=== PATIENT | female | born 1960 | race Caucasian/White ===

== ENCOUNTER → 2016-05-03 | Outpatient (CLI) | payer BC ==
--- NOTE | 2016-05-06 09:34 | MM ---
Reason for exam: screening (asymptomatic). Last mammogram was performed 1 year and 1 month ago. History: Patient is postmenopausal. Benign left mammotome panel of the left breast, May 22, 2007. Benign left mammotome panel of the left breast, September 12, 2006. Benign stereotactic core biopsy of the left breast, September 21, 1998. Took hormonal contraceptives for 20 years beginning at age 15. Took estrogen for 2 years 6 months beginning at age 38. Physical Findings: A clinical breast exam by your physician is recommended on an annual basis and results should be correlated with mammographic findings. MG Screening Mammo w CAD Bilateral CC and MLO view(s) were taken. Prior study comparison: March 31, 2015, bilateral MG screening mammo w CAD. December 21, 2013, right breast MG work up mamm w CAD RT. The breast tissue is heterogeneously dense. This may lower the sensitivity of mammography. Finding: There are typically benign calcifications in both breasts. Previous mammotome biopsy in the left breast. There is a chronic nodularity in the right breast. No significant changes in finding since March 31, 2015 and December 21, 2013. ASSESSMENT: Benign, BI-RAD 2 RECOMMENDATION: Routine screening mammogram of both breasts in 1 year.
== END | disposition home or self-care (01) ==
LOC: RADMAMWWP 08:00
PROVIDERS: ATTEND Internal Medicine
DX: Z12.31 Encounter for screening mammogram for malignant neoplasm of breast (principal)

== ENCOUNTER → 2017-09-30 | Outpatient (CLI) | payer OTHER ==
--- NOTE | 2017-09-30 14:51 | BD ---
EXAMINATION TYPE: Axial Bone Density DATE OF EXAM: 09/30/2017 COMPARISON: 12/15/2013 CLINICAL HISTORY: Postmenopausal female. Osteoporosis screening. Height: 62.5 IN Weight: 189 LBS FRAX RISK QUESTIONS: Secondary Osteoporosis: 3. Menopause before 45: YES HYSTERECTOMY AGE 38 Current Tobacco Use: YES RISK FACTORS HISTORY OF: Active: YES Postmenopausal woman: AGE 38 Take estrogen and/or progesterone medications: NOT NOW How long: TOOK CONTROL FOR 20 YEARS. TOOK ESTROGEN AGE 38 - 40 MEDICATIONS: Thyroid Medications: YES Which medication: LEVOTHYROXINE How Lon MONTHS Additional Medications: VIT D, EFFEXOR, LEVOTHYROXINE, CHOLESTEROL MEDS, MULTI VIT, ASPIRIN EXAM MEASUREMENTS: Bone mineral densitometry was performed using the [employer] System. Bone mineral density as measured about the Lumbar spine is: ----- L1-L4(G/cm2): 1.201 T Score Values are as follows: ----- L2: -0.6 ----- L3: 0.8 ----- L4: 0.5 ----- L1-L4: 0.2 Bone mineral density has: Increased 4.0% since study of: 12/15/2013 Bone mineral density about the R hip (g/cm2): 0.937 Bone mineral density about the L hip (g/cm2): 0.903 T Score values are as follows: -----R Neck: -0.7 -----L Neck: -1.0 -----R Total: 0.1 -----L Total: -0.2 Bone mineral density has: Decreased -0.1% since study of: 12/15/2013 IMPRESSION: Osteopenia (T Score between -2.5 and -1). There is slightly increased risk of fracture and the patient may be considered for treatment. Re-Screen 2-5 years. NOTE: T-SCORE=SD OF THE YOUNG ADULT MEAN.
--- NOTE | 2017-10-02 10:46 | MM ---
Reason for exam: screening (asymptomatic). Last mammogram was performed 1 year and 5 months ago. History: Patient is postmenopausal. Benign left mammotome panel of the left breast, May 22, 2007. Benign left mammotome panel of the left breast, September 12, 2006. Benign stereotactic core biopsy of the left breast, September 21, 1998. Took hormonal contraceptives for 20 years beginning at age 15. Took estrogen for 2 years 6 months beginning at age 38. Physical Findings: A clinical breast exam by your physician is recommended on an annual basis and results should be correlated with mammographic findings. MG Screening Mammo w CAD Bilateral CC and MLO view(s) were taken. Prior study comparison: May 03, 2016, bilateral MG screening mammo w CAD. March 31, 2015, bilateral MG screening mammo w CAD. There are scattered fibroglandular densities. Finding: There are stable segmental fine calcifications in the upper outer quadrant of the left breast. Previous mammotome biopsy in the left breast. No significant changes in finding since May 03, 2016 and March 31, 2015. ASSESSMENT: Benign, BI-RAD 2 RECOMMENDATION: Routine screening mammogram of both breasts in 1 year.
== END | disposition home or self-care (01) ==
LOC: RADMAMWWP 07:19
PROVIDERS: ATTEND Internal Medicine
DX: Z12.31 Encounter for screening mammogram for malignant neoplasm of breast (principal); Z13.820 Encounter for screening for osteoporosis; M85.852 Other specified disorders of bone density and structure, left thigh; M85.851 Other specified disorders of bone density and structure, right thigh
CPT/HCPCS: 77067; 77080

== ENCOUNTER → 2018-10-21 | Outpatient (CLI) | payer OTHER ==
--- NOTE | 2018-10-22 14:13 | MM ---
Reason for exam: screening (asymptomatic). Last mammogram was performed 1 year and 1 month ago. History: Patient is postmenopausal. Benign left mammotome panel of the left breast, May 22, 2007. Benign left mammotome panel of the left breast, September 12, 2006. Benign stereotactic core biopsy of the left breast, September 21, 1998. Took hormonal contraceptives for 20 years beginning at age 15. Took estrogen for 2 years 6 months beginning at age 38. Physical Findings: A clinical breast exam by your physician is recommended on an annual basis and results should be correlated with mammographic findings. MG Screening Mammo w CAD Bilateral CC and MLO view(s) were taken. Prior study comparison: September 30, 2017, bilateral MG screening mammo w CAD. May 03, 2016, bilateral MG screening mammo w CAD. The breast tissue is heterogeneously dense. This may lower the sensitivity of mammography. Benign appearing bilateral calcifications. Multiple left biopsy markers noted. No significant changes when compared with prior studies. ASSESSMENT: Benign, BI-RAD 2 RECOMMENDATION: Routine screening mammogram of both breasts in 1 year.
== END | disposition home or self-care (01) ==
LOC: RADMAMWWP 07:21
PROVIDERS: ATTEND Internal Medicine
DX: Z12.31 Encounter for screening mammogram for malignant neoplasm of breast (principal)
CPT/HCPCS: 77067

== ENCOUNTER 2018-11-06 08:32 | Day surgery (SDC) | payer OTHER ==
[2018-11-05 08:23] VITALS: BMI 34.7
[~2018-11-06 08:32] MED LIST: LACTATED RINGERS 1,000 ML IV SCH; LIDOCAINE 1% 20 ML VIAL (10MG/ML) FOR IV START INTRADERMA PRN
[2018-11-06 09:14] VITALS: RESP 18; TEMP 98.4
[2018-11-06] MEDS ORDERED: PROPOFOL 10 MG/ML 20 ML VIAL IV ONE (09:26)
[2018-11-06] MEDS ORDERED: LIDOCAINE 1% INJ 10MG/ML (20 ML MDV) ONE (09:26)
--- NOTE | 2018-11-06 09:28 | P.GSHP ---
History of Present Illness H&P Date: 11/06/18 Chief Complaint: Screening, history of polyps 58-year-old female presents today for colonoscopy. Last colonoscopy 5 years ago. 2 polyps found at that time. Biopsy results inconclusive. No bowel related complaints. Past Medical History Past Medical History: Hyperlipidemia, Thyroid Disorder Additional Past Medical History / Comment(s): spontaneous pneumothorax 2017 History of Any Multi-Drug Resistant Organisms: None Reported Past Surgical History: Hysterectomy Past Anesthesia/Blood Transfusion Reactions: Previous Problems w/ Anesthesia, Motion Sickness, Postoperative Nausea & Vomiting (PONV) Smoking Status: Current every day smoker - Past Family History Father Additional Family Medical History / Comment(s): father father at age 76 from heart failure and also was known to have a lung nodule that was not worked up. Mother Family Medical History: Myocardial Infarction ([place]) Additional Family Medical History / Comment(s): at 2018 Brother(s) Additional Family Medical History / Comment(s): Patient has 3 brothers and 2 sisters with no major medical problems. Patient has 2 daughters and 1 son with no major medical problems. Medications and Allergies Home Medications Medication Instructions Recorded Confirmed Type Aspirin 81 mg PO DAILY 01/26/14 11/06/18 History Atorvastatin [Lipitor] 80 mg PO DAILY 01/26/14 11/06/18 History Cholecalciferol [Vitamin D3] 5,000 unit PO MOWE 01/26/14 11/06/18 History Multivitamins, Thera [Multivitamin] 1 tab PO DAILY 01/26/14 11/06/18 History ALPRAZolam [Xanax] 0.25 mg PO DAILY PRN 12/29/16 11/06/18 History Fexofenadine HCl [Cecilia Allergy] 180 mg PO DAILY PRN 12/29/16 11/06/18 History Calcium Carbonate [Calcium] 600 mg PO DAILY 11/05/18 11/06/18 History Levothyroxine Sodium [Synthroid] 50 mcg PO DAILY 11/05/18 11/06/18 History Venlafaxine HCl [Effexor] 37.5 mg PO DAILY 11/05/18 11/06/18 History Allergies Allergy/AdvReac Type Severity Reaction Status Date / Time No Known Allergies Allergy Verified 11/06/18 08:52 Surgical - Exam Vital Signs Temp Pulse Resp BP Pulse Ox 98.4 F 71 18 108/71 96 11/06/18 09:00 11/06/18 09:00 11/06/18 09:00 11/06/18 09:00 11/06/18 09:00 Physical exam: General: Well-developed, well-nourished HEENT: Normocephalic, sclerae nonicteric Abdomen: Nontender, nondistended Extremities: No edema Neuro: Alert and oriented Assessment and Plan (1) Colon cancer screening Narrative/Plan: Will proceed with colonoscopy at this time Current Visit: Yes Status: Acute Code(s): Z12.11 - ENCOUNTER FOR SCREENING FOR MALIGNANT NEOPLASM OF COLON SNOMED Code(s): 650382504
--- NOTE | 2018-11-06 09:59 | P.PCN ---
Date of Procedure: 11/06/18 Procedure(s) Performed: PREOPERATIVE DIAGNOSIS: History of colon polyps, screening POSTOPERATIVE DIAGNOSIS: Rectal polyp PROCEDURE: Colonoscopy with snare polypectomy ANESTHESIA: MAC SURGEON: Isidro Alex M.D. SPECIMENS: Rectal polyp ENDOSCOPIC PROCEDURE: The patient was placed on the endoscopy table in the left decubitus position. The Olympus colonoscope was inserted into the anus and passed under direct visualization to the base of the cecum. The appendiceal orifice was visualized. From that point the scope was slowly withdrawn inspecting all surfaces carefully. There were no neoplastic inflammatory or polypoid lesions throughout the cecum, ascending, transverse, descending, and sigmoid colon. In the rectum there is noted be a small polyp that was removed using the snare with cautery technique. The remainder of the rectum was normal. There was no visible diverticulosis at this time. Digital rectal examination was normal. The patient was taken to the recovery room in stable condition per anesthesia guidelines. RECOMMENDATIONS: Await biopsy results. Anticipate follow-up colonoscopy 5 years.
[2018-11-06 10:05] VITALS: BP 127/80; PULSE 67
== END 2018-11-06 10:24 | disposition home or self-care (01) ==
LOC: ORWHC2ENDO 08:32
PROVIDERS: ATTEND Surgery
DX: Z12.11 Encounter for screening for malignant neoplasm of colon (principal); Z86.010 Personal history of colon polyps; E78.5 Hyperlipidemia, unspecified; E07.9 Disorder of thyroid, unspecified; Z90.710 Acquired absence of both cervix and uterus; F17.200 Nicotine dependence, unspecified, uncomplicated; F41.9 Anxiety disorder, unspecified; F41.0 Panic disorder [episodic paroxysmal anxiety]; Z97.2 Presence of dental prosthetic device (complete) (partial); Z87.09 Personal history of other diseases of the respiratory system; Z82.49 Family history of ischemic heart disease and other diseases of the circulatory system; Z79.82 Long term (current) use of aspirin; Z79.890 Hormone replacement therapy; Z79.899 Other long term (current) drug therapy
CPT/HCPCS: 88305; 45385; J2001; J2704

== ENCOUNTER → 2019-11-19 | Outpatient (CLI) | payer OTHER ==
--- NOTE | 2019-11-22 09:55 | MM ---
Reason for exam: screening (asymptomatic). Last mammogram was performed 1 year and 1 month ago. History: Patient is postmenopausal. Benign left mammotome panel of the left breast, May 22, 2007. Benign left mammotome panel of the left breast, September 12, 2006. Benign stereotactic core biopsy of the left breast, September 21, 1998. Took hormonal contraceptives for 20 years beginning at age 15. Took estrogen for 2 years 6 months beginning at age 38. Physical Findings: A clinical breast exam by your physician is recommended on an annual basis and results should be correlated with mammographic findings. MG Screening Mammo w CAD Bilateral CC and MLO view(s) were taken. Prior study comparison: October 21, 2018, bilateral MG screening mammo w CAD. September 30, 2017, bilateral MG screening mammo w CAD. The breast tissue is heterogeneously dense. This may lower the sensitivity of mammography. Stable benign calcifications. Previous mammotome biopsy in the left breast. There is no discrete abnormality. No significant changes when compared with prior studies. ASSESSMENT: Benign, BI-RAD 2 RECOMMENDATION: Routine screening mammogram of both breasts in 1 year.
== END | disposition home or self-care (01) ==
LOC: RADMAMWWP 15:54
PROVIDERS: ATTEND Internal Medicine
DX: Z12.31 Encounter for screening mammogram for malignant neoplasm of breast (principal)
CPT/HCPCS: 77067

== ENCOUNTER → 2021-02-13 | Outpatient (CLI) | payer BC ==
--- NOTE | 2021-02-13 11:38 | US ---
EXAMINATION TYPE: US thyroid st tissue head/neck DATE OF EXAM: 02/13/2021 COMPARISON: NONE CLINICAL HISTORY: E03.9 Hypothyroidism. GLAND SIZE: Right Lobe: 5.0x1.8x1.8 cm Overall Parenchyma: heterogenous Left Lobe: 4.7x1.6x1.8 cm Overall Parenchyma: heterogeneous Isthmus Thickness: 0.2 cm NODULES RIGHT: # of nodules measured on right: 2 1. 1.1 X 0.9 x 0.7 cm, lower medial, solid or almost completely solid, hyperechoic nodule, which is wider than tall, with smooth margins, without echogenic foci. TR 3 2. 0.9 X 0.9 x 0.9 cm, lower mid, solid or almost completely solid, hypoechoic nodule, which is wid er than tall, with smooth margins, without echogenic foci. TR4 LEFT: # of nodules measured on left: 1 1. 0.8 X 0.8 x 0.6 cm, upper medial, solid or almost completely solid, hyperechoic nodule, which is wider than tall, with smooth margins, without echogenic foci. TR 4 ISTHMUS: # of nodules measured in the isthmus: 0 Bilateral neck scanned, no evidence of lymphadenopathy. Markedly heterogeneous normal-sized thyroid without suspicious greater than 1.5 cm hypoechoic solid n odule. IMPRESSION: As above. 2017 ACR TI-RADS LEVEL: TR-RADS 4 - Moderately Suspicious: Follow if > 1 cm, FNA if > 1.5 cm *Highest TI-RADS level nodule reported
== END | disposition home or self-care (01) ==
LOC: RADUSWWP 10:41
PROVIDERS: ATTEND Internal Medicine
DX: E04.2 Nontoxic multinodular goiter (principal); E03.9 Hypothyroidism, unspecified
CPT/HCPCS: 76536

== ENCOUNTER → 2021-02-15 | Outpatient (CLI) | payer BC ==
--- NOTE | 2021-02-19 10:32 | MM ---
Reason for exam: screening (asymptomatic). Last mammogram was performed 1 year and 3 months ago. History: Patient is postmenopausal. Benign left mammotome panel of the left breast, May 22, 2007. Benign left mammotome panel of the left breast, September 12, 2006. Benign stereotactic core biopsy of the left breast, September 21, 1998. Took hormonal contraceptives for 20 years beginning at age 15. Took estrogen for 2 years 6 months beginning at age 38. Physical Findings: A clinical breast exam by your physician is recommended on an annual basis and results should be correlated with mammographic findings. MG Screening Mammo w CAD Bilateral CC and MLO view(s) were taken. Prior study comparison: November 19, 2019, bilateral MG screening mammo w CAD. October 21, 2018, bilateral MG screening mammo w CAD. The breast tissue is heterogeneously dense. This may lower the sensitivity of mammography. No significant changes when compared with prior studies. ASSESSMENT: Benign, BI-RAD 2 RECOMMENDATION: Routine screening mammogram of both breasts in 1 year.
== END | disposition home or self-care (01) ==
LOC: RADMAMWWP 16:13
PROVIDERS: ATTEND Internal Medicine
DX: Z12.31 Encounter for screening mammogram for malignant neoplasm of breast (principal); Z78.0 Asymptomatic menopausal state
CPT/HCPCS: 77067

== ENCOUNTER → 2022-02-18 | Outpatient (CLI) | payer BC ==
--- NOTE | 2022-02-18 08:28 | MM ---
Reason for Exam: Screening (asymptomatic). Last screening mammogram was performed 12 month(s) ago. Patient History: Menarche at age 10. First Full-Term at age 15. Left ovary removed at age 38. Right ovary removed at age 38. Hysterectomy at age 38. Postmenopausal. Estrogen for 2 years, 6 months, from age 38 until age 41. Hormonal Contraceptives for 20 years from age 15 until age 38. 05/22/2007, Benign Core Biopsy on the left side. 09/12/2006, Benign Core Biopsy on the left side. 09/21/1998, Benign Stereotactic Core Biopsy on the left side. Risk Values: Denise 5 year model risk: 1.7%. NCI Lifetime model risk: 7.0%. Prior Study Comparison: 10/21/2018 Bilateral Screening Mammogram, [facility]. 11/19/2019 Bilateral Screening Mammogram, [facility]. 02/15/2021 Bilateral Screening Mammogram, [facility]. Tissue Density: The breast tissue is heterogeneously dense. This may lower the sensitivity of mammography. Findings: Analyzed By CAD. There is no suspicious group of microcalcifications or new suspicious mass in either breast. Overall Assessment: Benign, BI-RAD 2 Management: Screening Mammogram of both breasts in 1 year. A clinical breast exam by your physician is recommended on an annual basis and results should be correlated with mammographic findings. Electronically signed and approved by: Jules Molina M.D. Radiologis
--- NOTE | 2022-02-18 08:36 | CTL ---
EXAMINATION TYPE: CT Low Dose Lung DATE OF EXAM ORDERED: 02/18/2022 COMPARISON: None HISTORY: . Low Dose CT Lung Screening CT DLP: 98.[address] CTDI: 3.0 mGy IV CONTRAST USED: None. SCREENING VISIT: First visit COMPARISON: None. TECHNIQUE: Low dose computed tomography scan was performed through the chest at 1 millimeter thick se ctions and reconstructed images in the coronal plane at [address] DIAGNOSTIC QUALITY: Satisfactory FINDINGS: LUNG NODULES: 1 mm pulmonary nodule right upper lobe anteriorly image 64 series 4. 5 mm groundglass n odule right upper lobe anteriorly image 135 series 4. LUNGS: COPD: Severity: None Fibrosis: Severity:None Lymph nodes: None Other findings: None RIGHT PLEURAL SPACE: Effusion: None Calcification: None Thickening: None Pneumothorax: None LEFT PLEURAL SPACE: Effusion: None Calcification: None Thickening: None Pneumothorax: None HEART: Heart Size: Mildly enlarged Coronary calcification: Mild Pericardial effusion: None OTHER FINDINGS: Upper abdomen: Left adrenal adenoma. Bony thorax: Degenerative changes Supraclavicular region: No significant abnormalityOther: No significant abnormalityI IMPRESSION: 1. Left adrenal adenoma. 2. Benign-appearing nodules. FOLLOW UP CT CHEST RECOMMENDATION: Follow-up screening in one year CT LUNG RAD: LUNG RAD CATEGORY 2 benign appearance or behavior.
--- NOTE | 2022-02-18 09:42 | BD ---
EXAMINATION TYPE: Axial Bone Density DATE OF EXAM: 02/18/2022 COMPARISON: 09.30.2017 CLINICAL HISTORY: 62 years year old Female. ICD-10 CODE: [id number] OSTEO OF RIGHT HIP Height: 62 Weight: 199 FRAX RISK QUESTIONS: History of Fracture in Adulthood: YES Secondary Osteoporosis: YES 3. Menopause before 45: YES, AT 38 Current Tobacco Use: YES, JUST QUIT RISK FACTORS HISTORY OF: HX OF BROKEN TOES AN ADULT Postmenopausal woman: YES, AT 38...TOTAL HYST Take estrogen and/or progesterone medications: JUST A YR IN THE PAST Hyperparathyroidism: NO Adrenal Insufficiency: NO MEDICATIONS: Thyroid Medications: YES, SYNTHROID PRODUCT FOR ABOUT 3 YRS Additional Medications: EFFEXOR, XANAX, VIT D, CALCIUM AND STATIN FOR CHOLESTEROL, Additional History: ANXIETY, CHOLESTEROL, EXAM MEASUREMENTS: Bone mineral densitometry was performed using the [employer] System. Bone mineral density as measured about the Lumbar spine is: ----- L1-L4(G/cm2): 1.337 T Score Values are as follows: ----- L1: 0.1 ----- L2: 0.9 ----- L3: 1.9 ----- L4: 1.8 ----- L1-L4: 1.3 Bone mineral density has: Decreased -3.5% since study of: 09.30.2017 Bone mineral density about the R hip (g/cm2): 1.00 Bone mineral density about the L hip (g/cm2): 1.00 T Score values are as follows: -----R Neck: -0.8 -----L Neck: -1.0 -----R Total: -0.1 -----L Total: -0.1 Bone mineral density has: Decreased -0.1% since study of: 09.30.2017 FRAX%s: The graph provided illustrates a 12.0% chance for a major osteoporotic fx and a 1.4% chance f or the hips probability for fx in 10 years time. IMPRESSION: Normal (Values between +1 and -1 indicate normal bone mass). Consider repeating this study in 5 year s or sooner if there is some new clinical indication. NOTE: T-SCORE=SD OF THE YOUNG ADULT MEAN.
--- NOTE | 2022-02-18 09:57 | US ---
EXAMINATION TYPE: US thyroid st tissue head/neck DATE OF EXAM: 02/18/2022 COMPARISON: NONE CLINICAL HISTORY: E041 THYROID NODULE. Thyroid nodules GLAND SIZE: Right Lobe: 4.7 x 1.4 x 2.0 cm Overall Parenchyma: heterogenous Left Lobe: 4.4 x 1.6 x 1.7 cm Overall Parenchyma: heterogeneous Isthmus Thickness: .2 cm NODULES RIGHT: # of nodules measured on right: 2 1. 1.0 X 0.9 x 1.0 cm, Prior size: 1.1 x 0.9 x 0.7 cm TIRADS Score: 4 TIRADS Category 4: Moderately Suspicious Composition: Solid or almost completely solid (2 points). Echogenicity: Hypoechoic (2 points). Shape: Wider than tall (0 points). Margin: Smooth (0 points). Echogenic foci: None or large comet-tail artifacts (0 points) Recommendation: If >1.5cm: FNA; If >1cm: Follow up at 1,3,5 years 2. 1.0 X 0.7 x 1.1 cm, mid Prior size: 0.9 x 0.9 x 0.9 cm TIRADS Score: 3 TIRADS Category 3: Mildly Suspicious Composition: Solid or almost completely solid (2 points). Echogenicity: Hyperechoic or isoechoic (1 point). Shape: Wider than tall (0 points). Margin: Smooth (0 points). Echogenic foci: None or large comet-tail artifacts (0 points) Recommendation: If >2.5cm: FNA; If >1.5cm: Follow up at 1,3,5 years LEFT: # of nodules measured on left: Heterogenous no definite nodules seen. ISTHMUS: # of nodules measured in the isthmus: 0 Bilateral neck scanned, no evidence of lymphadenopathy. IMPRESSION: Left thyroid nodule that meet criteria for follow-up. 2017 ACR TI-RADS LEVEL: TR-RADS 4 - Moderately Suspicious: Follow if > 1 cm, FNA if > 1.5 cm *Highest TI-RADS level nodule reported
== END | disposition home or self-care (01) ==
LOC: RADMAMWWP 06:43
PROVIDERS: ATTEND Internal Medicine
DX: Z12.31 Encounter for screening mammogram for malignant neoplasm of breast (principal); Z12.2 Encounter for screening for malignant neoplasm of respiratory organs; D35.02 Benign neoplasm of left adrenal gland; M85.851 Other specified disorders of bone density and structure, right thigh; E04.1 Nontoxic single thyroid nodule; R91.8 Other nonspecific abnormal finding of lung field; Z78.0 Asymptomatic menopausal state; Z87.891 Personal history of nicotine dependence; Z98.890 Other specified postprocedural states
CPT/HCPCS: 71271; 76536; 77067; 77080

== ENCOUNTER 2022-04-05 11:17 | Day surgery (SDC) | payer BC ==
--- NOTE | 2022-04-05 07:36 | P.GSHP ---
History of Present Illness H&P Date: 04/05/22 Chief Complaint: Right back lipoma 62-year-old female seen in the office in January. Patient with enlarging mass right mid back for the last 25 years. Some pain at times. Here today for surgical excision. Past Medical History Past Medical History: Hyperlipidemia, Thyroid Disorder Additional Past Medical History / Comment(s): nausea History of Any Multi-Drug Resistant Organisms: None Reported Past Surgical History: Hysterectomy Additional Past Surgical History / Comment(s): upper and lower scopes Past Anesthesia/Blood Transfusion Reactions: Previous Problems w/ Anesthesia, Motion Sickness, Postoperative Nausea & Vomiting (PONV) Smoking Status: Current some day smoker - Past Family History Father Additional Family Medical History / Comment(s): father father at age 76 from heart failure and also was known to have a lung nodule that was not worked up. Mother Family Medical History: Myocardial Infarction ([place]) Additional Family Medical History / Comment(s): at 2018 Brother(s) Additional Family Medical History / Comment(s): Patient has 3 brothers and 2 sisters with no major medical problems. Patient has 2 daughters and 1 son with no major medical problems. Medications and Allergies Home Medications Medication Instructions Recorded Confirmed Type Aspirin 81 mg PO DAILY 01/26/14 04/01/22 History Atorvastatin [Lipitor] 80 mg PO HS 01/26/14 04/01/22 History Cholecalciferol [Vitamin D3] 5,000 unit PO MOWE 01/26/14 04/01/22 History Multivitamins, Thera [Multivitamin] 1 tab PO DAILY 01/26/14 04/01/22 History ALPRAZolam [Xanax] 0.25 mg PO DAILY PRN 12/29/16 04/01/22 History Fexofenadine HCl [Cecilia Allergy] 180 mg PO DAILY PRN 12/29/16 04/01/22 History Calcium Carbonate [Calcium] 600 mg PO DAILY 11/05/18 04/01/22 History Levothyroxine Sodium [Synthroid] 50 mcg PO DAILY 11/05/18 04/01/22 History Venlafaxine HCl [Effexor] 37.5 mg PO DAILY 11/05/18 04/01/22 History Zinc Gluconate [Zinc] 50 mg PO DAILY 04/01/22 04/01/22 History Allergies Allergy/AdvReac Type Severity Reaction Status Date / Time codeine AdvReac Unknown Verified 04/01/22 10:36 Surgical - Exam Physical exam: General: Well-developed, well-nourished HEENT: Normocephalic, sclerae nonicteric Abdomen: Nontender, nondistended Extremities: No edema, right mid back with 12 cm lipomatous mass Neuro: Alert and oriented Assessment and Plan (1) Lipoma of back Narrative/Plan: 62-year-old female with large lipoma right mid back. We'll proceed with surgical excision at this time. Risks of bleeding, infection, recurrence, scarring, numbness, seroma, possible need for drain placement reviewed. She understands and wishes to proceed. Status: Acute Code(s): D17.1 - BENIGN LIPOMATOUS NEOPLASM OF SKIN, SUBCU OF TRUNK SNOMED Code(s): 657635178
[~2022-04-05 11:17] MED LIST changes: +ACETAMINOPHEN TAB 500 MG TAB PO PRN; +DEXAMETHASONE SOD PHOSPHATE 4 MG/ML 1 ML VIAL IV ONE; +HEPARIN SODIUM,PORCINE/PF 5,000 UNIT/0.5 ML SYRINGE SQ PRN; -LIDOCAINE 1% 20 ML VIAL (10MG/ML) FOR IV START INTRADERMA PRN; +MIDAZOLAM 2 MG/2 ML VIAL IV PRN; +ONDANSETRON 4 MG/2 ML VIAL IVP ONE; +Pre Op ABX Message 1 EACH MISC MISCELLANE ONE; +SCOPOLAMINE 1 MG/72 HR PATCH TRANSDERM ONE; +fentaNYL (PF) 50 MCG/ML 2 ML AMP IV PRN
[2022-04-05] MEDS ORDERED: HYDROmorphone 0.5 MG/0.5 ML SYRINGE IVP PRN (11:28)
[2022-04-05] MEDS ORDERED: LIDOCAINE 1% (10MG/ML) FOR IV START INTRADERMA PRN (11:28)
[2022-04-05] MEDS ORDERED: LACTATED RINGERS 1,000 ML IV SCH (11:28)
[2022-04-05] MEDS ORDERED: ONDANSETRON 4 MG/2 ML VIAL ONE (11:38)
[2022-04-05 11:47] VITALS: RESP 16
[2022-04-05] MEDS ORDERED: PHENYLEPHRINE-0.9% NACL SYG 1,000 MCG/10 ML SYRINGE ONE (13:31)
[2022-04-05] MEDS ORDERED: LIDOCAINE 2% INJ 20 MG/ML (2 ML VIAL) ONE (13:31)
[2022-04-05] MEDS ORDERED: fentaNYL (PF) 50 MCG/ML 2 ML AMP ONE (13:31)
[2022-04-05] MEDS ORDERED: PROPOFOL 10 MG/ML 20 ML VIAL IV ONE (13:31)
[2022-04-05] MEDS ORDERED: MIDAZOLAM 2 MG/2 ML VIAL ONE (13:31)
[2022-04-05] MEDS ORDERED: SODIUM CHLORIDE 0.9% 50 ML with ceFAZolin 2,000 MG IV ONE ×2 (14:07)
[2022-04-05] MEDS ORDERED: LACTATED RINGERS 1,000 ML IV ONE (14:09)
[2022-04-05] MEDS ORDERED: BUPIVACAINE (PF) 0.5% 30 ML VIAL SQ ONE ×2 (14:11→14:23)
[2022-04-05] MEDS ORDERED: traMADol 50 MG TAB PO PRN (14:40)
[2022-04-05] MEDS ORDERED: NALOXONE 0.4 MG/ML 1 ML VIAL IV PRN (14:40)
[2022-04-05] MEDS ORDERED: ACETAMINOPHEN TAB 325 MG TAB PO PRN (14:40)
[2022-04-05 14:53] VITALS: TEMP 97
[2022-04-05 16:09] VITALS: BP 125/82; PULSE 86
--- NOTE | 2022-04-05 17:19 | P.OP ---
Date of Procedure: 04/05/22 Procedure(s) Performed: PREOPERATIVE DIAGNOSIS: Right back lipoma POSTOPERATIVE DIAGNOSIS: Right back subfascial lipoma PROCEDURE: Excision right back subfascial lipoma with intermediate closure SURGEON: Isai EBL: 50 Radha ANESTHESIA: Gen. COMPLICATIONS: None OPERATIVE PROCEDURE: Patient place in the left decubitus position after general anesthesia achieved. The right mid back was prepped and draped sterilely. There was a portion of the skin at the central aspect of this mass that appeared to be adherent to the lipoma. An elliptical incision was made encompassing this portion of skin. The subcutaneous tissues were then dissected using both blunt dissection and cautery fully excising the large lipomatous mass. This did extend below the fascia centrally. There are multiple pseudopod-like areas of the lipoma that were extending into the surrounding tissues. The specimen was removed as one piece. This measured 9 x 6 cm. A small area of bleeding was controlled using a 3-0 Vicryl tie. The subcutaneous tissues were then closed using interrupted 3-0 Vicryl sutures. The skin was closed using a running 4-0 Monocryl subcuticular stitch. Skin glue was applied. DISPOSITION: Stable to recovery room
== END 2022-04-05 16:28 | disposition home or self-care (01) ==
LOC: OR 11:17
PROVIDERS: ATTEND Surgery
DX: D17.1 Benign lipomatous neoplasm of skin and subcutaneous tissue of trunk (principal); I10 Essential (primary) hypertension; E03.9 Hypothyroidism, unspecified; Z79.890 Hormone replacement therapy; E78.5 Hyperlipidemia, unspecified; K21.9 Gastro-esophageal reflux disease without esophagitis; F41.9 Anxiety disorder, unspecified; F32.A Depression, unspecified; Z98.51 Tubal ligation status; Z98.890 Other specified postprocedural states; Z80.1 Family history of malignant neoplasm of trachea, bronchus and lung; Z82.49 Family history of ischemic heart disease and other diseases of the circulatory system; Z79.02 Long term (current) use of antithrombotics/antiplatelets; Z79.899 Other long term (current) drug therapy; Z87.891 Personal history of nicotine dependence; Z79.82 Long term (current) use of aspirin; Z88.5 Allergy status to narcotic agent; Z88.8 Allergy status to other drugs, medicaments and biological substances
CPT/HCPCS: 21933; 88304; J2250; J1100; J2405; J0690; J3010; J2370; J2704; J1644; J2001

== ENCOUNTER → 2023-04-18 | Outpatient (CLI) | payer BC ==
--- NOTE | 2023-04-21 08:57 | MM ---
Reason for Exam: Screening (asymptomatic). Last mammogram was performed 1 year(s) and 2 month(s) ago. Patient History: Menarche at age 10. First Full-Term at age 15. Left ovary removed at age 38. Right ovary removed at age 38. Hysterectomy at age 38. Postmenopausal. Estrogen for 2 years, 6 months, from age 38 until age 41. Hormonal Contraceptives for 20 years from age 15 until age 38. 05/22/2007, Benign Core Biopsy on the left side. 09/12/2006, Benign Core Biopsy on the left side. 09/21/1998, Benign Stereotactic Core Biopsy on the left side. Risk Values: Denise 5 year model risk: 1.8%. NCI Lifetime model risk: 6.8%. Prior Study Comparison: 11/19/2019 Bilateral Screening Mammogram, [facility]. 02/15/2021 Bilateral Screening Mammogram, [facility]. 02/18/2022 Bilateral MG screening mammo w CAD, [facility]. Tissue Density: There are scattered fibroglandular densities. Findings: Analyzed By CAD. There is no suspicious group of microcalcifications or new suspicious mass. Overall Assessment: Negative, BI-RAD 1 Management: Screening Mammogram of both breasts in [address] [facility] will attempt to contact patient to return for supplemental views and ultrasound if indicated. Patient should continue monthly self-breast exams. A clinical breast exam by your physician is recommended on an annual basis. This exam should not preclude additional follow-up of suspicious palpable abnormalities. Note on Denise scores and lifetime risk: 1. A Denise score greater than 3% is considered moderate risk. If this is the case, consider specialist referral to assess eligibility for a risk reducing agent. 2. If overall lifetime risk for the development of breast cancer is 20% or higher, the patient may qualify for future screening with alternating mammogram and breast MRI. Electronically signed and approved by: Dustin Vega DO
== END | disposition home or self-care (01) ==
LOC: RADMAMWWP 07:57
PROVIDERS: ATTEND Internal Medicine
DX: Z12.31 Encounter for screening mammogram for malignant neoplasm of breast (principal); Z12.2 Encounter for screening for malignant neoplasm of respiratory organs; Z78.0 Asymptomatic menopausal state
CPT/HCPCS: 77063; 77067

== ENCOUNTER → 2023-10-15 | Outpatient (CLI) | payer BC ==
--- NOTE | 2023-11-06 16:04 | CTL ---
Site ID [facility] Patient Katharina Gregg M ID [id number] 1960 Age/Gender: 63Y, F Order # N/A Procedure CT LOW DOSE LUNG CANCER SCREENING Date 10/15/2023 10:14:00 AM EXAMINATION TYPE: CT Low Dose Lung DATE OF EXAM ORDERED: 10/30/2023 HISTORY: Personal history of nicotine dependence, 20 pack year history, quit smoking 7 years ago. Bogdan g cancer screening CT DLP: 120.[address] CTDI: 3.20 mGy Automated exposure control for dose reduction was used. SCREENING VISIT: Follow-up COMPARISON: CT Low Dose Lung cancer screening 02/18/2022 TECHNIQUE: Low dose computed tomography scan was performed through the chest at 1 mm thick sections a nd reconstructed images in multiple planes at 1 mm and [address] DIAGNOSTIC QUALITY: Satisfactory FINDINGS: Nodules: Posterior left upper lobe punctate calcific granuloma. Stable peripheral right upper lobe 3.5 mm pulmonary nodule (series 4, image 70). Stable left lower lobe peripheral 4.5 mm pulmonary nodule (series 4, image 183). Stable 4.8 mm intrafissural lymph node along the right minor fissure. LUNGS: COPD: Severity: None Fibrosis: Severity: None Lymph nodes: None Other findings: None RIGHT PLEURAL SPACE: Effusion: None Calcification: None Thickening: None Pneumothorax: None LEFT PLEURAL SPACE: Effusion: None Calcification: None Thickening: None Pneumothorax: None HEART: Heart Size: Normal Coronary Calcification: Mild, predominantly within the LAD. Pericardial Effusion: None OTHER FINDINGS: Upper abdomen: Stable left adrenal 1.8 cm lipid rich adenoma. Bony thorax: None Supraclavicular region: None Other: Mild atherosclerotic calcification of the aorta and its branches. IMPRESSION: Few stable pulmonary nodules measuring less than 5 mm. No new or enlarging pulmonary nodu les. CT LUNG RAD AND CT CHEST RECOMMENDATION: Lung-Rad 2 Benign Appearance or Behavior: Continue annual sc reening with LDCT in 12 months. S Modifier (other clinically significant findings): None
--- NOTE | 2023-11-11 13:15 | US ---
Site ID [facility] Patient Katharina Gregg M ID [id number] 1960 Age/Gender: 63Y, F Order # N/A Procedure US thyroid st tissue head/neck Date 10/15/2023 9:37:00 AM EXAMINATION TYPE: US thyroid st tissue head/neck DATE OF EXAM: 11/03/2023 COMPARISON: Thyroid ultrasound 02/18/2022 CLINICAL INDICATION: Female, 63 year old with history of nodule, hypothyroidism. GLAND SIZE: Right Lobe: 3.6 x 1.3 x 1.7 cm Overall Parenchyma: heterogeneous Left Lobe: 3.9 x 1.6 x 1.9 cm Overall Parenchyma: heterogeneous Isthmus Thickness: 0.3 cm NODULES RIGHT: # of nodules measured on right: 1 1. 0.9 X 0.6 x 0.9 cm, mid , solid or almost completely solid, hypoechoic nodule, which is wider th an tall, with smooth margins, without echogenic foci. Prior size: 1.0 x 0.9 x 1.0 cm 2. Other previously seen nodule is not well-visualized today's exam. LEFT: No discrete nodule. ISTHMUS: No discrete nodule. Bilateral neck scanned, no evidence of lymphadenopathy. IMPRESSION: Stable right thyroid lobe 0.9 cm TR 4 nodule. Other previously seen right thyroid lobe nodules not we ll visualized in today's exam. No new or enlarging thyroid nodules.
--- NOTE | 2023-11-11 13:16 | US ---
Site ID [facility] Katharina Piedra ID [id number] 1960 Age/Gender: 63Y, O Order # N/A Procedure US carotid duplex BILAT Date 10/15/2023 9:45:00 AM EXAMINATION TYPE: US carotid duplex BILAT DATE OF EXAM: 11/02/2023 COMPARISON: NONE CLINICAL INDICATION: 63 year old with history of stenosis. TECHNIQUE: Carotid duplex ultrasound examination. Indirect Doppler criteria was utilized. FINDINGS: EXAM MEASUREMENTS: RIGHT: Peak Systolic Velocity (PSV) cm/sec ----- Right CCA: 81 ----- Right ICA: 86 ----- Right ECA: 91 ICA/CCA ratio: 1.1 RIGHT: End Diastole cm/sec ----- Right CCA: 28 ----- Right ICA: 38 ----- Right ECA: 20 LEFT: Peak Systolic Velocity (PSV) cm/sec ----- Left CCA: 84 ----- Left ICA: 79 ----- Left ECA: 84 ICA/CCA ratio: 0.9 LEFT: End Diastole cm/sec ----- Left CCA: 29 ----- Left ICA: 32 ----- Left ECA: 18 VERTEBRALS (direction of flow): Right Vertebral: Antegrade Left Vertebral: Antegrade BOTANY TECHNICIAN NOTES: No significant stenosis identified. No elevated velocities. IMPRESSION: No ultrasound evidence for hemodynamically significant stenosis of the visualized bilateral carotid a rterial systems. Criteria for Assigning % of Stenosis / Diameter reduction (Estimation based on the indirect measurements of the internal carotid artery velocities (ICA PSV). 1. Normal (no stenosis)=ICA PSV < 125 cm/s: ratio < 2.0: ICA EDV<40 cm/s. 2. Less than 50% stenosis=ICA PSV < 125 cm/s: ratio < 2.0: ICA EDV<40 cm/s. 3. 50 to 69% stenosis=ICA PSV of 125 to 230 cm/s: ration 2.0 ? 4.0: ICA EDV 40-100 cm/s. 4. Greater than 70% stenosis to near occlusion= ICA PSV > 230 cm/s: ratio > 4.0: ICA EDV > 100 cm/s. 5. Near occlusion= ICA PSV velocities may be low or undetectable: variable ratio and ICA EDV. 6. Total occlusion=unable to detect flow.
== END | disposition home or self-care (01) ==
LOC: RADUSWWP 09:30
PROVIDERS: ATTEND Internal Medicine
DX: E03.9 Hypothyroidism, unspecified (principal); I65.23 Occlusion and stenosis of bilateral carotid arteries; R91.8 Other nonspecific abnormal finding of lung field; I34.0 Nonrheumatic mitral (valve) insufficiency; Z12.2 Encounter for screening for malignant neoplasm of respiratory organs
CPT/HCPCS: 71271; 76536; 93880

== ENCOUNTER → 2024-02-11 | Outpatient (CLI) | payer BC ==
--- NOTE | 2024-02-11 10:14 | XR ---
EXAMINATION TYPE: XR lumbosacral spine min 4V DATE OF EXAM: 02/11/2024 10:02 AM COMPARISON: None. CLINICAL INDICATION: Female, 64 years old with history of M47.816 SPONDYLOSIS W/O MYELOPATHY OR RADIC ULOPATH, TECHNIQUE: 5 view(s) obtained. FINDINGS: There are 5 lumbar-type vertebral bodies. Pedicles are intact. There is attempted sacralization of L5 on the right. Mild facet degenerative changes are present. No spondylolytic defects are evident. Deg enerative disc changes are present posteriorly at L3-4, L4-5, L5-S1. Spondylosis is present. Follow-u p MRI can be performed as clinically indicated. IMPRESSION: 1. Degenerative changes lumbar spine. [facility], Workstation: [facility], 02/11/2024 10:12 AM
== END | disposition home or self-care (01) ==
LOC: RADXRMAIN 09:37
PROVIDERS: ATTEND Internal Medicine
DX: M51.379 Other intervertebral disc degeneration, lumbosacral region without mention of lumbar back pain or lower extremity pain (principal); M47.816 Spondylosis without myelopathy or radiculopathy, lumbar region
CPT/HCPCS: 72110

== ENCOUNTER → 2024-03-16 | Outpatient (CLI) | payer BC ==
--- NOTE | 2024-03-17 11:10 | CA ---
Transthoracic Echo Report Name: Katharina Gregg Age: 64 Gender: F : 1960 Exam Date: 03/16/2024 15:59 Exam Location: [facility] Ht (in): 62 Wt (lb): 200 Ordering Physician: Stephanie Lucas MD Attending/Referring Phys: Stephanie Lucas MD Graphics Software Engineer Cassi Birmingham RDCS Procedure CPT: Indications: I34.0 NONRHEUMATIC MITRAL (VALVE) INSUFFICIENCY Cardiac Hx: Technical Quality: Good Contrast 1: Total Dose (mL): Contrast 2: Total Dose (mL): MEASUREMENTS (Male / Female) Normal Values 2D ECHO LV Diastolic Diameter PLAX 4.2 cm 4.2 - 5.9 / 3.9 - 5.3 cm LV Systolic Diameter PLAX 2.8 cm IVS Diastolic Thickness 1.2 cm 0.6 - 1.0 / 0.6 - 0.9 cm LVPW Diastolic Thickness 1.2 cm 0.6 - 1.0 / 0.6 - 0.9 cm LV Relative Wall Thickness 0.6 RV Internal Dim ED PLAX 3.5 cm LA Systolic Diameter LX 3.7 cm 3.0 - 4.0 / 2.7 - 3.8 cm LV Diastolic Volume MOD 4C 78.9 cm??? LV Systolic Volume MOD 4C 29.2 cm??? LV Ejection Fraction MOD 4C 63.0 % LV Cardiac Index MOD 4C 1977.6 cm???/min???m??? LV Diastolic Length 4C 7.8 cm LV Systolic Length 4C 5.9 cm LV Diastolic Volume MOD 2C 71.4 cm??? LV Systolic Volume MOD 2C 25.5 cm??? LV Ejection Fraction MOD 2C 64.2 % LV Cardiac Index MOD 2C 1823.4 cm???/min???m??? LV Diastolic Length 2C 7.7 cm LV Systolic Length 2C 5.7 cm LA Volume 47.9 cm??? 18 - 58 / 22 - 52 cm??? LA Volume Index 23.5 cm???/m??? 16 - 28 cm???/m??? M-MODE Aortic Root Diameter MM 2.9 cm AV Cusp Separation MM 2.2 cm DOPPLER AV Peak Velocity 181.0 cm/s AV Peak Gradient 13.1 mmHg MV Area PHT 4.5 cm??? Mitral E Point Velocity 82.6 cm/s Mitral A Point Velocity 92.3 cm/s Mitral E to A Ratio 0.9 MV Deceleration Time 167.6 ms TR Peak Velocity 251.8 cm/s TR Peak Gradient 25.4 mmHg Right Ventricular Systolic Press 29.2 mmHg FINDINGS Left Ventricle Left ventricular ejection fraction is estimated at 60-65 %. Left ventricular cavity size normal. Mildly increased septal wall thickness. Mildly increased posterior wall thickness. Normal left ventricular wall motion. Right Ventricle . Right ventricular systolic pressure within normal limits. Normal right ventricular size and function. Right Atrium Normal right atrial size. No right atrial thrombus or mass seen. Left Atrium Normal left atrial size. No left atrial thrombus or mass present. Mitral Valve Structurally normal mitral valve. No mitral stenosis, regurgitation or prolapse. Aortic Valve Trileaflet aortic valve. Aortic valve sclerosis. No aortic valve stenosis or regurgitation. Tricuspid Valve Structurally normal tricuspid valve. Mild tricuspid regurgitation. Pulmonic Valve Structurally normal pulmonic valve. Trace pulmonic regurgitation. Pericardium No pericardial effusion. Aorta Normal size aortic root and proximal ascending aorta. CONCLUSIONS LVEF 60% Mild concentric LVH No obvious regional wall motion abnormality Normal right ventricular size and function. RVSP 29 mmHg No significant valvular dysfunction Previewed by: Dr Josh Rooney (Electronically Signed) Final Date: 17 March 2024 11:10
== END | disposition home or self-care (01) ==
LOC: RADECHMAIN 15:44
PROVIDERS: ATTEND Internal Medicine
DX: I34.0 Nonrheumatic mitral (valve) insufficiency (principal); I37.1 Nonrheumatic pulmonary valve insufficiency; I07.1 Rheumatic tricuspid insufficiency
CPT/HCPCS: 93306

== ENCOUNTER 2024-03-30 10:07 | Day surgery (SDC) | payer BC ==
[2024-03-30] MEDS: LIDOCAINE 1% (10MG/ML) FOR IV START INTRADERMA PRN (11:20)
[2024-03-30] MEDS: LACTATED RINGERS 1,000 ML IV SCH (11:20)
[2024-03-30] MEDS: IV FLUID CONTINUATION 1,000 ML IV ONE (11:20)
[2024-03-30 11:25] VITALS: RESP 16; TEMP 98.5
[2024-03-30] MEDS ORDERED: PROPOFOL 10 MG/ML 20 ML VIAL IV ONE (11:28)
--- NOTE | 2024-03-30 11:31 | P.GSHP ---
History of Present Illness H&P Date: 03/30/24 Chief Complaint: Colon cancer screening 64-year-old female with history of colon polyps. Both of the recent colonoscopy report show hyperplastic polyps. I believe the patient had a polyp in the past that was adenomatous but I do not have documentation of that here. Patient is asymptomatic. No family history of colon cancer. Last colonoscopy 5 to 6 years ago. Past Medical History Past Medical History: Hyperlipidemia Additional Past Medical History / Comment(s): intermittent problems with nausea/gagging- due to stress per pt, about twice a month History of Any Multi-Drug Resistant Organisms: None Reported Past Surgical History: Hysterectomy Additional Past Surgical History / Comment(s): EGD & colonoscopies Past Anesthesia/Blood Transfusion Reactions: Previous Problems w/ Anesthesia, Motion Sickness, Postoperative Nausea & Vomiting (PONV) Smoking Status: Former smoker - Past Family History Father Additional Family Medical History / Comment(s): father father at age 76 from heart failure and also was known to have a lung nodule that was not worked up. Mother Family Medical History: Myocardial Infarction ([place]) Additional Family Medical History / Comment(s): at 2018 Brother(s) Additional Family Medical History / Comment(s): Patient has 3 brothers and 2 sisters with no major medical problems. Patient has 2 daughters and 1 son with no major medical problems. Medications and Allergies Home Medications Medication Instructions Recorded Confirmed Type Aspirin 81 mg PO DAILY 01/26/14 03/25/24 History Atorvastatin [Lipitor] 80 mg PO HS 01/26/14 03/25/24 History Cholecalciferol [Vitamin D3] 5,000 unit PO MOWE 01/26/14 03/25/24 History Multivitamins, Thera [Multivitamin] 1 tab PO DAILY 01/26/14 03/25/24 History ALPRAZolam [Xanax] 0.25 mg PO DAILY PRN 12/29/16 03/25/24 History Fexofenadine HCl [Cecilia Allergy] 180 mg PO DAILY PRN 12/29/16 03/25/24 History Calcium Carbonate [Calcium] 600 mg PO MOWEFR 11/05/18 03/25/24 History Levothyroxine Sodium [Synthroid] 50 mcg PO DAILY 11/05/18 03/25/24 History Venlafaxine HCl [Effexor] 37.5 mg PO DAILY 11/05/18 03/25/24 History Ascorbic Acid [Vitamin C] 500 mg PO DAILY 03/25/24 03/25/24 History Allergies Allergy/AdvReac Type Severity Reaction Status Date / Time codeine AdvReac Unknown Verified 03/30/24 11:10 Surgical - Exam Vital Signs Temp Pulse Resp BP Pulse Ox 98.5 F 71 16 148/76 96 03/30/24 11:20 03/30/24 11:20 03/30/24 11:20 03/30/24 11:20 03/30/24 11:20 Physical exam: General: Well-developed, well-nourished HEENT: Normocephalic, sclerae nonicteric Abdomen: Nontender, nondistended Extremities: No edema Neuro: Alert and oriented Assessment and Plan (1) Colon cancer screening Narrative/Plan: Will proceed with colonoscopy at this time. Current Visit: No Status: Acute Code(s): Z12.11 - ENCOUNTER FOR SCREENING FOR MALIGNANT NEOPLASM OF COLON SNOMED Code(s): 509115923
--- NOTE | 2024-03-30 11:47 | P.PCN ---
Date of Procedure: 03/30/24 Procedure(s) Performed: PREOPERATIVE DIAGNOSIS: Colon cancer screening POSTOPERATIVE DIAGNOSIS: Transverse colon polyp, sigmoid colon polyp, diverticulosis PROCEDURE: Colonoscopy with snare polypectomy ANESTHESIA: MAC SURGEON: Isidro Alex M.D. SPECIMENS: Colon polyps ENDOSCOPIC PROCEDURE: The patient was placed on the endoscopy table in the left decubitus position. The Olympus colonoscope was inserted into the anus and passed under direct visualization to the base of the cecum. The appendiceal or ifice was visualized. From that point the scope was slowly withdrawn inspecting all surfaces carefully. There were no neoplastic inflammatory or polypoid lesions throughout the cecum or ascending colon. In the proximal transverse colon a small polyp was seen and removed using the snare with cautery technique. The remainder of the transverse and descending colon appeared normal. In the sigmoid and additional polyp was seen and removed in a similar fashion. The remainder of the sigmoid and rectum was normal. The patient had mild left-sided diverticulosis. Digital rectal examination was normal. The patient was taken to the recovery room in stable condition per anesthesia guidelines. RECOMMENDATIONS: Await biopsy results. If no adenomatous tissue recommend repeat colonoscopy 7 years.
[2024-03-30 12:09] VITALS: BP 134/83; PULSE 72
== END 2024-03-30 12:27 | disposition home or self-care (01) ==
LOC: ORWHC2ENDO 10:07
PROVIDERS: ATTEND Surgery
DX: Z12.11 Encounter for screening for malignant neoplasm of colon (principal); K63.5 Polyp of colon; K57.30 Diverticulosis of large intestine without perforation or abscess without bleeding; E78.5 Hyperlipidemia, unspecified; F41.0 Panic disorder [episodic paroxysmal anxiety]; E07.9 Disorder of thyroid, unspecified; Z90.710 Acquired absence of both cervix and uterus; Z87.891 Personal history of nicotine dependence; Z82.49 Family history of ischemic heart disease and other diseases of the circulatory system; Z79.890 Hormone replacement therapy; Z88.5 Allergy status to narcotic agent; Z79.82 Long term (current) use of aspirin; Z79.02 Long term (current) use of antithrombotics/antiplatelets; Z79.899 Other long term (current) drug therapy
CPT/HCPCS: 45385; J2704; 88305